=== PATIENT | female | born 1990 | race African-American/Black ===

== ENCOUNTER 2017-05-02 09:55 | Inpatient (IN) | payer MEDICAID ==
[~2017-05-02] VITALS: Ht 165.1 cm; Wt 79.4 kg
[~2017-05-02 09:55] MED LIST: FERR324T4 PO; IBUP600 PO; OXYC1SOL5 PO
[2017-05-03] VITALS (11 sets, daily range): BP systolic 113–126; BP diastolic 61–90; PULSE 63–81; RESP 18–20; TEMP 97.6–98.4; O2SAT 100
--- NOTE | 2017-05-03 11:01 | MH ---
cc: Rosi GOMEZ DATE OF ADMISSION 05/03/2017 PREOPERATIVE DIAGNOSIS 1. Intrauterine at 40 weeks 4 days 2. Previous section HISTORY OF PRESENT ILLNESS Miss Estrada is a 26-year-old female para 1-0-0-1 who has been followed in her the entire time in my office. She has had a fairly unremarkable antepartum course except for a urinary tract infection early in and mild anemia. She was attempting a , but now approaching 41 weeks, she is over this . She is was measuring 41 on the fundal height and she desires a repeat section at this time. She understands the risks and benefits and desires to proceed. OBSTETRICAL HISTORY Para 1-0-0-1. She had a previous section. PAST GYNECOLOGIC HISTORY Her Pap smear was negative in 06/22. Her cultures for CT, GC and Trich were negative in 09-22. PAST SURGICAL HISTORY Remarkable for section. PAST MEDICAL HISTORY Remarkable for mild anemia. SOCIAL HISTORY She is . She does not drink or smoke or take drugs. FAMILY HISTORY Breast cancer in her grandmother. ALLERGIES No known drug allergies. CURRENT MEDICATIONS vitamins and iron. REVIEW OF SYSTEMS No headaches, no shortness of breath. No chest pain. She reports good movement. She denies rupture of membranes or bleeding. PHYSICAL EXAM This is a well-nourished, well-nourished female in no acute distress. Her weight is 178. Her blood pressure is 104/60. HEENT: Normocephalic, atraumatic. NECK: Supple. Trachea is midline. No thyromegaly or adenopathy. CHEST: Clear to auscultation. HEART: Regular rate and rhythm. ABDOMEN: Gravid, nontender. Fundal height is 41. This is a fairly large baby. PELVIC: External genitalia is normal. Vagina is clean. The cervix is 1 cm dilated, effaced, 50%. EXTREMITIES: No clubbing, cyanosis, edema. ASSESSMENT/PLAN 1. Intrauterine 40 weeks 4 days with a previous section. We will take her back to the operating room for a repeat section. 2. Mild anemia. We will check her CBC. MD AMADO Wheeler/ELSA /10:30 AM /10:46 AM
[2017-05-03] MEDS ORDERED: PNVPAK (12:02)
[2017-05-03] MEDS ORDERED: OXYTOCIN 10 UNIT/ML AMP ONE (12:08)
[2017-05-03] MEDS ORDERED: ceFAZolin INJ 1,000 MG VIAL ONE (12:08)
[2017-05-03] MEDS ORDERED: CITRIC ACID-SODIUM CITRATE LIQ 30 ML UDC ONE (12:09)
[2017-05-03 12:27] LABS: BASOPHIL % 0.5 % (0.0-2.0); EOSINOPHIL % 0.5 % (0.0-4.0); HEMATOCRIT 37.4 % (35.0-46.0); HEMO FLAGS DIFF FINAL; LYMPH % 25.1 % (9.0-44.0); LYMPHOCYTE # 1.6 TH/MM3 (1.0-4.8); MEAN CELL VOLUME 84.6 FL (80.0-100.0); MEAN CORPUSCULAR HEMOGLOBIN 27.7 PG (27.0-34.0); MEAN CORPUSCULAR HGB CONC 32.7 % (32.0-36.0); MONO % 11.3 % (0.0-8.0); NEUT % 62.6 % (16.0-70.0); PLATELET COUNT 202 TH/MM3 (150-450); RED BLOOD COUNT 4.42 MIL/MM3 (4.00-5.30); RED CELL DISTRIBUTION WIDTH 15.7 % (11.6-17.2); WHITE BLOOD COUNT 6.4 TH/MM3 (4.0-11.0)
[2017-05-03] MEDS ORDERED: LACTATED RINGER'S 1000 ML IV ONE (12:30)
[2017-05-03] MEDS ORDERED: LACTATED RINGER'S 1000 ML IV SCH (12:30)
[2017-05-03] MEDS ORDERED: CITRIC ACID-SODIUM CITRATE LIQ 30 ML UDC PO SCH (12:30)
[2017-05-03] MEDS ORDERED: ceFAZolin 2 GM PREMIX 50 ML IV SCH (12:30)
[2017-05-03 12:44] LABS: BACTERIA, URINE OCC /hpf; BLOOD, URINE NEG (NEG); COMMENT (UR) CULT NOT INDICATED; CULTURE IF INDICATED CULT NOT INDICATED; GLUCOSE,URINE NEG (NEG); KETONE, URINE NEG (NEG); MUCUS URINE FEW /lpf (OCC); NITRITE,URINE NEG (NEG); SQUAMOUS EPITHELIAL CELL URINE 14 /hpf (0-5); URINE COLOR YELLOW (YELLW/STRAW)
[2017-05-03] MEDS ORDERED: MORPHINE SULFATE PF 5 MG/10 ML VIAL ONE (14:24)
[2017-05-03] MEDS ORDERED: OXYTOCIN 30 UNITS-500ML PREMIX 500 ML IV ONE ×2 (14:30)
[2017-05-03] MEDS ORDERED: SIMETHICONE 80 MG CHEWABLE TAB PO PRN (14:30)
[2017-05-03] MEDS ORDERED: oxyCODONE/ACETAMINOPHEN 5 MG/325 MG TAB PO PRN ×2 (14:30)
[2017-05-03] MEDS ORDERED: ZOLPIDEM TARTRATE 5 MG TAB PO PRN (14:30)
[2017-05-03] MEDS ORDERED: ONDANSETRON HCL 4 MG/2 ML VIAL IV PUSH PRN (14:30)
[2017-05-03] MEDS ORDERED: SODIUM CHLORIDE 0.9% FLUSH 10 ML FLUSH IV FLUSH PRN (14:30)
[2017-05-03] MEDS ORDERED: OXYTOCIN 30 UNITS-500ML PREMIX 500 ML ONE (15:29)
[2017-05-03] MEDS ORDERED: EPIDURAL-DO NOT ADMINISTER ANTICOAGULANTS PRN (17:00)
[2017-05-03] MEDS ORDERED: EPIDURAL-NALOXONE HCL 0.4 MG/ML AMP IV PRN (17:00)
[2017-05-03] MEDS ORDERED: EPIDURAL-NO SYSTEMIC NARCOTICS PRN (17:00)
[2017-05-03] MEDS ORDERED: EPIDURAL-DIPHENHYDRAMINE HCL 50 MG CAP PO PRN (17:00)
[2017-05-03] MEDS: EPIDURAL-DIPHENHYDRAMINE HCL 50 MG/ML VIAL IV PUSH PRN (18:59)
[2017-05-03] MEDS ORDERED: LACTATED RINGER'S 1000 ML INJ 1,000 ML IV SCH (19:22)
[2017-05-03] MEDS ORDERED: SODIUM CHLORIDE 0.9% FLUSH 10 ML FLUSH IV FLUSH SCH (21:00)
[2017-05-04] MEDS ORDERED: OXYTOCIN 30 UNITS-500ML PREMIX 500 ML IV PRN (00:30)
[2017-05-04] MEDS: IBUPROFEN 600 MG TAB PO PRN ×4 (01:00→23:42)
[2017-05-04] MEDS: EPIDURAL-DIPHENHYDRAMINE HCL 50 MG/ML VIAL IV PUSH PRN ×2 (01:00→01:30)
[2017-05-04 02:00] VITALS: BP 161/98; PULSE 57; RESP 21; TEMP 98.3; O2SAT 100
[2017-05-04] MEDS: DOCUSATE SODIUM 50 MG/SENNA 8.6 MG TAB PO PRN ×2 (02:00→23:42)
[2017-05-04 04:10] VITALS: BP 111/71; PULSE 63; RESP 16; TEMP 97.9; O2SAT 98
[2017-05-04 07:30] LABS: AUTOMATED NEUTROPHIL # 4.5 TH/MM3 (1.8-7.7); BASOPHIL % 0.3 % (0.0-2.0); EOSINOPHIL # 0.1 TH/MM3 (0-0.4); EOSINOPHIL % 0.7 % (0.0-4.0); HEMATOCRIT 33.8 % (35.0-46.0); HEMO FLAGS DIFF FINAL; LYMPH % 24.3 % (9.0-44.0); LYMPHOCYTE # 1.7 TH/MM3 (1.0-4.8); MEAN CELL VOLUME 84.8 FL (80.0-100.0); MEAN CORPUSCULAR HEMOGLOBIN 27.8 PG (27.0-34.0); MEAN CORPUSCULAR HGB CONC 32.8 % (32.0-36.0); MONO % 8.7 % (0.0-8.0); PLATELET COUNT 167 TH/MM3 (150-450); RED BLOOD COUNT 3.98 MIL/MM3 (4.00-5.30); WHITE BLOOD COUNT 6.9 TH/MM3 (4.0-11.0)
[2017-05-04 08:00] VITALS: BP 117/75; PULSE 53; RESP 18; TEMP 98
[2017-05-04] MEDS ORDERED: OXYC1TAB63 PO (08:34)
[2017-05-04] MEDS ORDERED: IBUP-232 PO (08:34)
--- NOTE | 2017-05-04 09:58 | HHI.OB ---
Subjective Post Operative Day: 1 Objective Vitals/I&O Vital Signs Date Time Temp Pulse Resp B/P Pulse Ox O2 Delivery O2 Flow Rate FiO2 05/04/17 04:10 97.9 63 16 111/71 98 05/04/17 02:00 98.3 57 21 161/98 100 05/03/17 19:25 98.4 64 18 126/81 05/03/17 19:25 98.4 64 18 126/81 05/03/17 15:50 98.2 81 20 126/90 05/03/17 15:23 98.4 05/03/17 15:19 71 19 118/78 100 05/03/17 15:06 63 18 124/70 100 05/03/17 14:48 64 119/77 05/03/17 14:48 20 100 05/03/17 14:45 100 05/03/17 14:33 66 20 113/71 05/03/17 14:30 100 05/03/17 14:22 97.6 05/03/17 14:21 70 18 116/61 Result Diagram: 05/04/17 0613 Objective Remarks GENERAL: Well-nourished, well-developed patient. CARDIOVASCULAR: Regular rate and rhythm without murmurs, gallops, or rubs. RESPIRATORY: Breath sounds equal bilaterally. No accessory muscle use. ABDOMEN/GI: Abdomen soft, non-tender, bowel sounds present. Incision: Clean, dry and intact. Fundus: pressure dressing Firm, non-tender at umbilicus. GENITOURINARY: Light to moderate bleeding. EXTREMITIES: No cyanosis or edema, non-tender, without signs of DVT. Medications and IVs Current Medications Medications (Trade) Dose Ordered Sig/Stanley Route Start Time Stop Time Status Last Admin (Lr 1000 ml Inj) 1,000 ml @ 100 mls/hr Q10H IV 05/03/17 19:22 05/04/17 15:21 (NS Flush) 2 ml BID IV FLUSH 05/03/17 21:00 (NS Flush) 2 ml UNSCH PRN IV FLUSH 05/03/17 14:30 (Mylicon Chew) 80 mg QID PRN PO 05/03/17 14:30 (Motrin) 600 mg Q6H PRN PO 05/03/17 14:30 05/04/17 01:30 (Percocet 5-325 Mg) 1 tab Q4H PRN PO 05/03/17 14:30 (Percocet 5-325 Mg) 2 tab Q4H PRN PO 05/03/17 14:30 (Kayla-Colace) 2 tab Q12H PRN PO 05/03/17 14:30 05/04/17 02:00 (Ambien) 5 mg HS PRN PO 05/03/17 14:30 (M-M-R Ii Inj) 0.5 ml ONCE ONCE SQ 05/04/17 16:00 05/04/17 16:01 (Boostrix Inj) 0.5 ml ONCE ONCE IM 05/04/17 16:00 05/04/17 16:01 (Zofran Inj) 4 mg Q6H PRN IV PUSH 05/03/17 14:30 Miscellaneous Information NO SYSTEMIC NARCOTICS TO BE GIVEN FO... UNSCH PRN .XX 05/03/17 17:00 05/04/17 16:59 (Narcan Inj) 0.4 mg UNSCH PRN IV 05/03/17 17:00 05/04/17 16:59 (Benadryl Inj) 25 mg Q6H PRN IV PUSH 05/03/17 17:00 05/04/17 16:59 05/04/17 01:30 (Benadryl) 50 mg Q6H PRN PO 05/03/17 17:00 05/04/17 16:59 Miscellaneous Information ALL NURSING DEPARTMENTS UNSCH PRN .XX 05/03/17 17:00 05/04/17 16:59 Assessment/Plan Problem List: (1) Anemia Plan: will treat pp (2) S/P repeat low transverse Plan: routine Assessment and Plan POD #1 pt doing well, oral pain medication available pt ambulating well in the room bottle feeding routine Discharge Planning pt wanting to go home on sunday Shelly Sandoval May 04, 2017 09:58
--- NOTE | 2017-05-04 09:59 | HHI.DCPOC ---
Discharge Care Plan Diagnosis: (1) S/P repeat low transverse (2) Anemia Your Health Problems Are: delivery Report Symptoms to Your Doctor -Temperature above 100.5 degrees -Redness, of incision or excessive or foul smelling drainage -Unusual pain or calf pain -Increased vaginal bleeding -Painful or difficulty urinating -Feelings of extreme sadness or anxiety after 2 weeks Goals to Promote Your Health * To prevent worsening of your condition and complications * To maintain your health at the optimal level Directions to Meet Your Goals Take your medications as prescribed Follow your dietary instruction Follow activity as directed Ensure plenty of rest for recovery Drink fluids for hydration Keep your appointments as scheduled Take your immunizations and boosters as scheduled If your symptoms worsen call your PCP, if no PCP go to Urgent Care Center or Emergency Room Smoking is Dangerous to Your Health. Avoid second hand smoke Call the 24-hour crisis hotline for domestic abuse at Shelly Sandoval May 04, 2017 09:59
--- NOTE | 2017-05-04 10:02 | HHI.DS ---
Admission Date May 03, 2017 at 10:30 Discharge Date: May 06, 2017 Admitting Diagnosis 40+ week previous c section admitted for repeat c section Diagnosis: (1) S/P repeat low transverse Diagnosis: Principal Delivery Date: May 03, 2017 : Repeat : Female Brief History 40+ week previous c section repeat c section routine Pt Condition on Discharge: Good Discharge Disposition: Discharge Home Discharge Instructions Diet Instructions: As Tolerated, No Restrictions Additional Diet Instructions: Drink at least 8 - 16 oz bottles of water a day Activities You Can Perform: Shower Only-No Bath Activities to Avoid: Prolonged Standing, Strenuous Activity, Sexual Activity Additional Activity Instruc.: No driving until off pain medications Do not lift anything heavier than your baby in an infant carrier Follow up Referrals: ADJUNCT FACULTY INSTRUCTOR - 1 Week @ [facility] New Medications: Ibuprofen (Ibuprofen) 600 Mg Tab 600 MG PO Q6H Pain Management #30 TAB Oxycodone-Acetaminophen (Oxycodone-Acetaminophen) 5-325 mg Tab 1 TAB PO Q4H moderate pain #30 TAB Continued Medications: Ferrous Sulfate (Ferrous Sulfate) 325 Mg Tab 325 MG PO BID anemia #60 TAB W/O Vit A W/ Fe Carbo (Pnv Ob+Dha 27-1 & 250 mg) 1 Shelly Pina May 04, 2017 10:02
[2017-05-04 13:35] VITALS: BP 127/90; PULSE 68; RESP 18; TEMP 97.7
[2017-05-04] MEDS ORDERED: DIPHTH/TETANUS/ACEL PERTUSSIS (BOOSTER) 0.5 ML VIAL/PFS IM ONE (16:00)
[2017-05-04] MEDS ORDERED: MEASLES, MUMPS, RUBELLA VACCINE 0.5 ML VIAL SQ ONE (16:00)
[2017-05-04 21:30] VITALS: BP 116/72; PULSE 71; RESP 18; TEMP 99.1
[2017-05-05 08:00] VITALS: BP 142/88; PULSE 75; RESP 18; TEMP 98.4
[2017-05-05] MEDS: IBUPROFEN 600 MG TAB PO PRN ×2 (09:05→17:59)
--- NOTE | 2017-05-05 11:12 | HHI.OB ---
Subjective Post Operative Day: 2 Remarks no complaints Objective Vitals/I&O Vital Signs Date Time Temp Pulse Resp B/P Pulse Ox O2 Delivery O2 Flow Rate FiO2 05/05/17 08:00 98.4 75 18 142/88 05/04/17 21:30 99.1 05/04/17 21:30 71 18 116/72 05/04/17 13:35 97.7 68 18 127/90 Result Diagram: 05/04/17 0613 Objective Remarks GENERAL: Well-nourished, well-developed patient. CARDIOVASCULAR: Regular rate and rhythm without murmurs, gallops, or rubs. RESPIRATORY: Breath sounds equal bilaterally. No accessory muscle use. ABDOMEN/GI: Abdomen soft, non-tender, bowel sounds present. Incision: Clean, dry and intact. Fundus: pressure dressing Firm, non-tender at umbilicus. GENITOURINARY: Light to moderate bleeding. EXTREMITIES: No cyanosis or edema, non-tender, without signs of DVT. Medications and IVs Current Medications Medications (Trade) Dose Ordered Sig/Stanley Route Start Time Stop Time Status Last Admin (NS Flush) 2 ml BID IV FLUSH 05/03/17 21:00 (NS Flush) 2 ml UNSCH PRN IV FLUSH 05/03/17 14:30 (Mylicon Chew) 80 mg QID PRN PO 05/03/17 14:30 (Motrin) 600 mg Q6H PRN PO 05/03/17 14:30 05/05/17 09:05 (Percocet 5-325 Mg) 1 tab Q4H PRN PO 05/03/17 14:30 (Percocet 5-325 Mg) 2 tab Q4H PRN PO 05/03/17 14:30 (Kayla-Colace) 2 tab Q12H PRN PO 05/03/17 14:30 05/04/17 23:42 (Ambien) 5 mg HS PRN PO 05/03/17 14:30 (Zofran Inj) 4 mg Q6H PRN IV PUSH 05/03/17 14:30 Assessment/Plan Problem List: (1) Anemia Plan: will treat pp (2) S/P repeat low transverse Plan: routine Assessment and Plan POD #2 pt doing well, oral pain medication available pt ambulating well in the room bottle feeding routine Discharge Planning pt wanting to go home on sunday Attending Attestation pt seen by me Snow Raymundo MD May 05, 2017 11:12
--- NOTE | 2017-05-05 18:35 | MP ---
cc: Rosi KNIGHT MD DATE OF SURGERY: 05/03/2017. PREOPERATIVE DIAGNOSIS: 1. Intrauterine at 40 weeks and 4 days 2. Previous section, desires repeat. POSTOPERATIVE DIAGNOSIS: 1. Intrauterine at 40 weeks and 4 days 2. Previous section, desires repeat. OPERATIVE PROCEDURE PERFORMED: Repeat low transverse section. SURGEON: Rosi Knight MD. ANESTHESIA: Spinal. FINDINGS: Gravid uterus. Viable female infant with good Apgars. Normal uterus. Normal tubes. Normal ovaries. She had a thick scar from her previous section. COMPLICATIONS: None. COUNTS: Correct. ESTIMATED BLOOD LOSS: 500 cc. FLUIDS: Crystalloids. DISPOSITION: The patient tolerated the procedure well and went to the recovery room in good condition. DESCRIPTION OF THE PROCEDURE IN DETAIL: The patient was taken to the operating room identified by name band and verbally. She was given a spinal anesthetic. A Washington catheter was inserted. She was prepped and draped for section. The old Pfannenstiel incision was removed and excised completely and the incision was taken down to the fascia. The fascia was taken off the rectus muscle by blunt and sharp dissection. The peritoneum was entered under direct vision without complication. The incision was extended with care to avoid the urinary bladder. A bladder blade was placed and a bladder flap created over the lower uterine segment which was well-developed. The uterus was then scored in a transverse manner along the lower uterine segment and taken down in the midline until the uterine cavity was entered. The incision was extended with the surgeon's fingers. The vertex was grasped and delivered through the incision without difficulty. The hypopharynx and nasopharynx were suctioned. The remainder of the infant was delivered. The cord was doubly clamped and cut and the handed to the resuscitation team that was present. Cord blood was obtained. The placenta was delivered manually without difficulty. The uterus was curetted twice with a wet lap. The uterine incision was repaired with 2-0 Vicryl a running locking fashion, the second layer imbricating the first. The cul-de-sac and gutters were cleaned of blood and debris with a large amount of irrigation. The uterus was delivered back into the abdomen. The incision was again inspected and was hemostatic. The rectus muscles were reapproximated with 0 Vicryl in an interrupted fashion. The fascia was repaired with 0 Vicryl from lateral to midline bilaterally in a running fashion. The subcutaneous tissue was repaired with 3-0 Vicryl. The skin was repaired with 4-0 Monocryl in a subcuticular manner. Steri-Strips were applied. The wound was sterilely dressed. R. MD AMADO Dorantes/MELCHOR /2:28 PM /6:28 PM
[2017-05-05 21:05] VITALS: BP 139/96; PULSE 72; RESP 18; TEMP 98.7
[2017-05-06] MEDS: DOCUSATE SODIUM 50 MG/SENNA 8.6 MG TAB PO PRN (01:09)
[2017-05-06] MEDS: IBUPROFEN 600 MG TAB PO PRN ×2 (01:10→08:23)
[2017-05-06 08:00] VITALS: BP 118/75; PULSE 79; RESP 18; TEMP 98.4
--- NOTE | 2017-05-06 09:53 | HHI.OB ---
Subjective Post Operative Day: 3 Remarks doing well, ready for discharge after special meal Objective Vitals/I&O Vital Signs Date Time Temp Pulse Resp B/P Pulse Ox O2 Delivery O2 Flow Rate FiO2 05/06/17 08:00 98.4 05/06/17 08:00 79 18 118/75 05/05/17 21:05 98.7 72 18 139/96 Result Diagram: 05/04/17 0613 Objective Remarks GENERAL: Well-nourished, well-developed patient. CARDIOVASCULAR: Regular rate and rhythm without murmurs, gallops, or rubs. RESPIRATORY: Breath sounds equal bilaterally. No accessory muscle use. ABDOMEN/GI: Abdomen soft, non-tender, bowel sounds present. Incision: Clean, dry and intact. Fundus: pressure dressing Firm, non-tender at umbilicus. GENITOURINARY: Light to moderate bleeding. EXTREMITIES: No cyanosis or edema, non-tender, without signs of DVT. Medications and IVs Current Medications Medications (Trade) Dose Ordered Sig/Stanley Route Start Time Stop Time Status Last Admin (NS Flush) 2 ml BID IV FLUSH 05/03/17 21:00 (NS Flush) 2 ml UNSCH PRN IV FLUSH 05/03/17 14:30 (Mylicon Chew) 80 mg QID PRN PO 05/03/17 14:30 (Motrin) 600 mg Q6H PRN PO 05/03/17 14:30 05/06/17 08:23 (Percocet 5-325 Mg) 1 tab Q4H PRN PO 05/03/17 14:30 (Percocet 5-325 Mg) 2 tab Q4H PRN PO 05/03/17 14:30 (Kayla-Colace) 2 tab Q12H PRN PO 05/03/17 14:30 05/06/17 01:09 (Ambien) 5 mg HS PRN PO 05/03/17 14:30 (Zofran Inj) 4 mg Q6H PRN IV PUSH 05/03/17 14:30 Assessment/Plan Problem List: (1) Anemia Plan: will treat pp (2) S/P repeat low transverse Plan: routine Assessment and Plan POD #3 pt doing well, oral pain medication available pt ambulating well in the room bottle feeding routine Discharge Planning pt wanting to go home on sunday Attending Attestation pt seen by Snow Manning MD May 06, 2017 09:53
== END 2017-05-06 13:20 | disposition home or self-care (01) | DRG 766 ==
LOC: H2EB 05-03 10:30 → H1EA 05-03 15:39
PROVIDERS: ADMIT Obstetrics & Gynecology; ATTEND Obstetrics & Gynecology
PROC: 10D00Z1 Extraction of Products of Conception, Low, Open Approach (ICD-10-PCS; principal; 2017-05-03)
DX: O34.219 Maternal care for unspecified type scar from previous cesarean delivery (principal); D64.9 Anemia, unspecified; Z37.0 Single live birth; O99.02 Anemia complicating childbirth; Z3A.40 40 weeks gestation of pregnancy
CPT/HCPCS: 59025; 81001; 85025; 86077; 86850; 86870; 86900; 86901; 86902; 86920; 86922; 90715; J0690; J1200; J2274; J2590; J7120